=== PATIENT | female | born 1985 | race Two or more races ===

== ENCOUNTER 2016-09-20 20:00 | Emergency (ER) | payer OTHER ==
[~2016-09-20] VITALS: Ht 162.6 cm; Wt 90.7 kg
[2016-09-20 20:02] VITALS: BP 145/68
[2016-09-20] MEDS ORDERED: TDAP [DIPH/PERTUSSIS/TET] 0.5 ML VIAL IM ONE ×2 (20:12→20:30)
== END 2016-09-20 20:26 | disposition home or self-care (01) ==
LOC: ER 20:02
DX: S61.511A Laceration without foreign body of right wrist, initial encounter (principal); W25.XXXA Contact with sharp glass, initial encounter; Y93.89 Activity, other specified; Y92.89 Other specified places as the place of occurrence of the external cause; Y99.8 Other external cause status
CPT/HCPCS: 12001; 90471; 90715; 99283; A4606; A6402; Z7610

== ENCOUNTER 2017-03-02 19:15 | Emergency (ER) | payer OTHER ==
[~2017-03-02] VITALS: Ht 160 cm; Wt 93.9 kg
[2017-03-02 19:20] VITALS: BP 125/92
== END 2017-03-02 20:02 | disposition home or self-care (01) ==
LOC: ER 19:16
DX: N39.0 Urinary tract infection, site not specified (principal)
CPT/HCPCS: A4606; Z7610

== ENCOUNTER 2017-05-12 21:32 | Emergency (ER) | payer OTHER ==
[~2017-05-12] VITALS: Ht 160 cm; Wt 88.0 kg
--- NOTE | 2017-05-12 21:47 | NUR ---
PT AMBULATORY TO ER BED 09 C/O COUGH AND CONGESTION, THROAT PAIN SINCE SUNDAY. PT DENIES FEVER. 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 STABLE VITALS. AWAITING MD RODRIGUEZ.
--- NOTE | 2017-05-12 22:15 | NUR ---
DR AMBRIZ AT BEDSIDE FOR EVAL.
[2017-05-12] MEDS ORDERED: DEXAMETHASONE SOD PHOSPHATE 4 MG/ML VIAL ONE (22:22)
[2017-05-12] MEDS ORDERED: ALBUTEROL FS 2.5 MG/3 ML VIAL.NEB ONE (22:29)
[2017-05-12] MEDS ORDERED: ALBUTEROL FS 2.5 MG/3 ML VIAL.NEB NEB ONE (22:30)
[2017-05-12] MEDS ORDERED: DEXAMETHASONE SOD PHOSPHATE 10 MG/ML VIAL IV ONE (22:30)
--- NOTE | 2017-05-12 22:31 | NUR ---
RT AT BEDSIDE FOR BREATHING TREATMENT.
--- NOTE | 2017-05-12 23:05 | NUR ---
Patient discharged to home in stable condition. Written and verbal after care instructions given. Patient verbalizes understanding of instruction.
[2017-05-12 23:07] VITALS: BP 150/71
== END 2017-05-12 23:11 | disposition home or self-care (01) ==
LOC: ER 21:33
DX: J45.901 Unspecified asthma with (acute) exacerbation (principal); J06.9 Acute upper respiratory infection, unspecified
CPT/HCPCS: A4606; J1100; Z7610

== ENCOUNTER 2017-11-27 23:12 | Emergency (ER) | payer OTHER ==
[~2017-11-27] VITALS: Ht 162.6 cm; Wt 63.5 kg
[2017-11-27 23:12] VITALS: BP 145/79
== END 2017-11-27 23:52 | disposition home or self-care (01) ==
LOC: ER 23:14
DX: J06.9 Acute upper respiratory infection, unspecified (principal); J20.9 Acute bronchitis, unspecified; J45.909 Unspecified asthma, uncomplicated; Z98.890 Other specified postprocedural states
CPT/HCPCS: A4606; Z7610

== ENCOUNTER 2017-12-03 15:04 | Emergency (ER) | payer OTHER ==
[~2017-12-03] VITALS: Ht 162.6 cm; Wt 90.7 kg
[2017-12-03 15:10] VITALS: BP 127/76
[2017-12-03] MEDS ORDERED: HYDROCODONE BIT/HOMATROPINE 5 ML UDC ONE (16:57)
[2017-12-03] MEDS ORDERED: ALBUTEROL FS 2.5 MG/3 ML VIAL.NEB NEB ONE (17:00)
[2017-12-03] MEDS ORDERED: IPRATROPIUM NEB FS 0.5 MG/2.5 ML AMPUL.NEB NEB ONE (17:00)
[2017-12-03] MEDS ORDERED: HYDROCODONE BIT/HOMATROPINE 5 ML UDC PO ONE (17:00)
[2017-12-03] MEDS ORDERED: ALBUTEROL FS 2.5 MG/3 ML VIAL.NEB ONE (17:04)
[2017-12-03] MEDS ORDERED: IPRATROPIUM NEB FS 0.5 MG/2.5 ML AMPUL.NEB ONE (17:04)
== END 2017-12-03 17:34 | disposition home or self-care (01) ==
LOC: ER 15:06
DX: J40 Bronchitis, not specified as acute or chronic (principal); R06.2 Wheezing; Z98.890 Other specified postprocedural states
CPT/HCPCS: 71045; 94640; 99283; A4606; Z7610

== ENCOUNTER 2018-06-11 14:32 | Emergency (ER) | payer OTHER ==
--- NOTE | 2018-06-11 14:55 | NUR ---
CALLED TO TRIAGE,NO ANSWER
--- NOTE | 2018-06-11 15:15 | NUR ---
CALLED TO TRIAGE,NO ANSWER
== END 2018-06-11 16:08 | disposition left against medical advice (07) ==
LOC: ER 14:34
DX: Z53.21 Procedure and treatment not carried out due to patient leaving prior to being seen by health care provider (principal)